=== PATIENT | female | born 1975 | race Hispanic/Latino ===

== ENCOUNTER 2023-01-20 11:10 | Emergency (ER) | payer BC ==
[~2023-01-20] VITALS: Ht 157.5 cm; Wt 72.6 kg
[2023-01-20 11:11] VITALS: BP 134/87; PULSE 66; RESP 18
[2023-01-20 11:56] LABS: APPEARANCE,URINE CLEAR (CLEAR); BILIRUBIN,URINE NEGATIVE (NEGATIVE); COLOR,URINE LIGHT-YELLOW (YELLOW); GLUCOSE, URINE (UA) NEGATIVE (NEGATIVE); KETONES,URINE NEGATIVE (NEGATIVE); LEUKOCYTE ESTERASE ,URINE NEGATIVE Leu/uL (NEGATIVE); NITRATE,URINE NEGATIVE (NEGATIVE); OCCULT BLOOD,URINE SMALL (NEGATIVE); PH,URINE 5.5 (5.0-8.0); PROTEIN,URINE NEGATIVE (NEGATIVE); UROBILINOGEN,URINE 0.2 mg/dL (0.2-1.0)
[2023-01-20 11:59] LABS: HCG,QUALITATIVE URINE NEGATIVE (NEGATIVE)
[2023-01-20 12:02] LABS: ADD UA MICROSCOPIC YES
[2023-01-20 12:05] LABS: BACTERIA,URINE RARE /HPF (None Seen); MUCUS,URINE RARE LPF (None Seen); SQUAMOUS EPITHELIAL CELL,UR RARE /HPF (0-2); WBC,URINE 0-1 /HPF (0-1)
[2023-01-20] MEDS ORDERED: PHEN-847 PO (15:27)
== END 2023-01-20 15:31 | disposition home or self-care (01) ==
LOC: EDH 11:10
DX: N39.0 Urinary tract infection, site not specified (principal); R30.0 Dysuria
CPT/HCPCS: 76856; 81001; 81025